=== PATIENT | female | born 1965 | race Caucasian/White ===

== ENCOUNTER 2024-10-13 09:52 | Outpatient (CLI) | payer OTHER, SELFPAY ==
--- NOTE | ~2024-10-13 | MR_ITS ---
MRI of the cervical spine Clinical History: Pain Technique: Axial T2-weighted and gradient images, and sagittal T1-weighted, T2-weighted, and STIR juan francisco ges were acquired. Findings: No acute fracture seen. There is minimal grade 1 anterolisthesis of C5 over C6. No suspicio us bone marrow signal abnormality seen. At C2-C3, there is no significant disc bulge or herniation. There is mild bilateral facet arthropathy , left worse than right. Probable minimal left neural foraminal narrowing. Neural foramen preserved. No canal stenosis or cord compression. At C3-C4, there is disc osteophyte complex, most pronounced at the left paracentral to left foraminal region, with associated prominent left facet arthropathy. There is severe left neural foraminal narr owing. Right neural foramen preserved. No canal stenosis or cord compression. At C4-C5, there is advanced degenerative disc narrowing with diffuse disc osteophyte complex. There i s mild canal stenosis with minimal flattening the ventral cord. There is left facet arthropathy with severe left neural foraminal narrowing. Right neural foramen intact. At C5-C6, there is severe degenerative narrowing. There is disc osteophyte complex with mild canal st enosis and no suzanne cord compression. There is bilateral neural foraminal narrowing, left worse than right. At C6-C7, there is degenerative disc narrowing with minimal disc osteophyte complex. Probable mild bi lateral neural foraminal narrowing. No canal stenosis or cord compression. No abnormal signal seen in the spinal cord. Paravertebral soft tissues are unremarkable. Impression: Moderate degenerative spondylosis overall, with multilevel neural foraminal narrowing, as detailed ab ove. Reviewed, dictated and finalized at location M. Impression: Moderate degenerative spondylosis overall, with multilevel neural foraminal court rowing, as detailed above.
== END 2024-10-13 09:53 | disposition home or self-care (01) ==
LOC: MICIMG 09:56
PROVIDERS: PCP Nurse Practitioner Family; Visit Provider Nurse Practitioner Family
DX: M47.812 Spondylosis without myelopathy or radiculopathy, cervical region (principal); M48.02 Spinal stenosis, cervical region
CPT/HCPCS: 72141